=== PATIENT | male | born 1945 | race Caucasian/White ===

== ENCOUNTER 2020-08-21 12:21 | Outpatient (CLI) | payer MEDICARE, SELFPAY ==
--- NOTE | ~2020-08-21 | XR_ITS ---
EXAMINATION: XR hip RT min 2V DATE: 08/21/2020 12:49 INDICATION: Right hip pain. TECHNIQUE: 2 views of right hip were obtained. COMPARISON: None. FINDINGS: Bone alignment is normal. No fracture. There is mild right hip osteoarthritis. A surgical c lip overlies the pelvis. IMPRESSION: 1. Mild right hip osteoarthritis. Reviewed, dictated and finalized at location A. [employer]
== END 2020-08-21 12:22 | disposition home or self-care (01) ==
DX: M16.11 Unilateral primary osteoarthritis, right hip (principal)
CPT/HCPCS: 73502

== ENCOUNTER 2022-07-25 15:41 | Emergency (ER) | payer MEDICARE, SELFPAY ==
--- NOTE | ~2022-07-25 | CT_ITS ---
EXAMINATION: CT cervical spine wo con DATE: 07/25/2022 16:41 INDICATION: trauma TECHNIQUE: Computed tomography (CT) of the cervical spine was performed without intravenous contrast. Automated exposure control and iterative reconstruction technique were employed. The dose-length pro duct was 406.72 mGy-cm. COMPARISON: 08/14/2018 FINDINGS: Vertebral Body Alignment: Intact. Trace multilevel degenerative listheses. Craniocervical and atlantoaxial alignment: Moderate degenerative change. Alignment intact. Osseous structures/fracture: No evidence of a lytic or blastic process in the visualized spine. No e vidence of acute fracture. Cervical soft tissues: The paraspinal soft tissues planes are maintained. Degenerative changes: Degenerative changes, without severe neural foraminal or central canal narrowin g. IMPRESSION: No acute fracture or traumatic malalignment in the cervical spine. Reviewed, dictated and finalized at location K.
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
--- NOTE | ~2022-07-25 | XR_ITS ---
EXAMINATION: XR knee RT min 4V DATE: 07/25/2022 16:28 INDICATION: Scrapes to the anterior right knee post fall TECHNIQUE: Anteroposterior, 2 oblique and crosstable lateral views of the right knee were obtained COMPARISON: None. FINDINGS: Right total knee arthroplasty with patellar resurfacing which is in near-anatomic alignment. No perip rosthetic lucency to suggest loosening or infection. Small elongated ossicle projecting along the sup eromedial margin of the patella which could represent either a minimally displaced age-indeterminate fracture versus degenerative or enthesopathic ossicle. No other lesions suspicious for fracture. Smal l right knee joint effusion without layering lipohemarthrosis. Mild prepatellar soft tissue swelling. No radiopaque foreign bodies. IMPRESSION: 1. Right total knee arthroplasty. 2. Small ossicle along the superomedial margin of the right patella which could represent either a mi nimally displaced age-indeterminate fracture versus chronic loose body or enthesopathic ossicle. Fadi elate for point tenderness along the superomedial margin of the patella. 3. Small right knee joint effusion. Reviewed, dictated and finalized at location B. IMPRESSION: 1. Right total knee arthroplasty. 2. Small ossicle along the superomedial margin of the right patella which could represent either a minimally displaced age-indeterminate fracture versus chron ic loose body or enthesopathic ossicle. Correlate for point tenderness along th e superomedial margin of the patella. 3. Small right knee joint effusion.
--- NOTE | ~2022-07-25 | XR_ITS ---
EXAMINATION: XR chest 1V portable DATE: 07/25/2022 16:29 INDICATION: Fall TECHNIQUE: frontal view of the chest was obtained. COMPARISON: Chest radiograph dated 03/26/18 FINDINGS: The lungs remain clear with no focal airspace opacities, pulmonary edema, pleural effusion or pneumot horax. The cardiomediastinal silhouette is normal. Postoperative changes in the epigastric region wit h multiple surgical clips. Postoperative change of prior bilateral distal clavicle resections. IMPRESSION: 1. No acute cardiopulmonary disease. Reviewed, dictated and finalized at location B.
--- NOTE | ~2022-07-25 | XR_ITS ---
EXAM: XR shoulder LT min 2V DATE: 07/25/2022 16:28 HISTORY: fall, pain throughout shoulder . COMPARISON: None available. FINDINGS: Normal mineralization. No fracture or dislocation. No lytic or blastic lesion. Degenerativ e change at the AC joint and glenohumeral joint. No erosion or periosteal change. Soft tissues within normal limits. IMPRESSION: No acute osseous finding in the left shoulder. Reviewed, dictated and finalized at location K.
[2022-07-25 15:46] VITALS: BP 155/76; PULSE 83; RESP 16; TEMP 36.6; O2SAT 98
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
[2022-07-25] MEDS: fentaNYL CITRATE INJ (*CRX) 100 MCG/2 ML VIAL IV PUSH (17:01)
--- NOTE | 2022-07-25 17:06 | PC.NURSE ---
ALS Transfer to [facility] accpted ALS Transfer ETA 15min Trip # [id number]
[2022-07-25 17:11] VITALS: BP 172/84; PULSE 85; RESP 16; O2SAT 100
[2022-07-25 17:26] VITALS: BP 169/80; PULSE 85; RESP 18; O2SAT 100
== END 2022-07-25 17:39 | disposition short-term general hospital (02) ==
PROVIDERS: Emergency Provider Emergency Medicine
DX: S06.30AA Unspecified focal traumatic brain injury with loss of consciousness status unknown, initial encounter (principal); S52.022B Displaced fracture of olecranon process without intraarticular extension of left ulna, initial encounter for open fracture type I or II; S00.81XA Abrasion of other part of head, initial encounter; S80.211A Abrasion, right knee, initial encounter; M18.9 Osteoarthritis of first carpometacarpal joint, unspecified; Z96.651 Presence of right artificial knee joint; V18.4XXA Pedal cycle driver injured in noncollision transport accident in traffic accident, initial encounter; Y93.55 Activity, bike riding
CPT/HCPCS: 70450; 71045; 72125; 73030; 73080; 73100; 73564; 96365; 96375; 99285; A4565; J0690; J3010

== ENCOUNTER 2024-06-04 08:46 | Emergency (ER) | payer MEDICARE, SELFPAY ==
[2024-06-04] VITALS (12 sets, daily range): BP systolic 122–170; BP diastolic 62–78; PULSE 56–89; RESP 16–22; TEMP 36.4–36.6; O2SAT 97–100
--- NOTE | ~2024-06-04 | XR_ITS ---
EXAMINATION: XR chest 2V DATE: 06/04/2024 09:36 INDICATION: Syncope. TECHNIQUE: Frontal and lateral views of the chest were obtained on 3 radiographs. COMPARISON: Chest single view 07/25/2022 FINDINGS: There is no pneumonia, pleural effusion, or pneumothorax. The heart size is normal. There a re surgical clips in the abdomen. IMPRESSION: 1. No acute cardiopulmonary disease. Reviewed, dictated and finalized at location A.
--- NOTE | ~2024-06-04 | CT_ITS ---
EXAMINATION: CT cervical spine wo con DATE: 06/04/2024 11:32 INDICATION: Head injury. TECHNIQUE: Computed tomography (CT) of the cervical spine was performed without intravenous contrast. Automated exposure control and iterative reconstruction technique were employed. The dose-length pro duct was 375.17 mGy-cm. COMPARISON: CT cervical spine 07/25/2022 FINDINGS: There is 5 degrees dextrocurvature of cervical spine. There is 2 mm retrolisthesis of C5 an d C6. Vertebral body heights are normal. There is mildly decreased disc height at C3-C4, severely dec reased disc height at C5-C6, and mildly decreased disc height at C6-C7. The following disc levels are specifically discussed: C2-C3: There is mild bilateral uncovertebral joint osteoarthritis. There is severe right and mild lef t facet joint osteoarthritis. There is mild right neural foraminal stenosis. There is mild central ca nal stenosis. C3-C4: There is severe bilateral uncovertebral joint osteoarthritis. There is severe bilateral facet joint osteoarthritis. There is mild bilateral neural foraminal stenosis. There is mild central canal stenosis. C4-C5: There is mild bilateral uncovertebral joint osteoarthritis. There is severe right and mild lef t facet joint osteoarthritis. There is mild right neural foraminal stenosis. There is mild central ca nal stenosis. C5-C6: There is severe bilateral uncovertebral joint osteoarthritis. There is severe right and modera te left facet joint osteoarthritis. There is mild bilateral neural foraminal stenosis. There is mild central canal stenosis. C6-C7: There is mild bilateral uncovertebral joint osteoarthritis. There is severe bilateral facet gisell int osteoarthritis. There is mild bilateral neural foraminal stenosis. There is mild central canal st enosis. C7-T1: There is no uncovertebral joint osteoarthritis. There is severe bilateral facet joint osteoart hritis. There is mild bilateral neural foraminal stenosis. There is mild central canal stenosis. IMPRESSION: 1. No fracture. 2. Severe cervical spondylosis. Reviewed, dictated and finalized at location A.
--- NOTE | ~2024-06-04 | CT_ITS ---
EXAMINATION: CT brain wo con DATE: 06/04/2024 17:24 INDICATION: Reassess involving intracranial hemorrhage. TECHNIQUE: Computed tomography (CT) of the head was performed without intravenous contrast. Sagittal and coronal reconstructions were performed. Automated exposure control and iterative reconstruction t echnique were employed. The dose-length product was 605.33 mGy-cm. COMPARISON: head CT dated 06/04/2024 at 11:23 AM FINDINGS: Unchanged small old lacunar infarct at the right lentiform nucleus. Also unchanged is a small focus o f acute subarachnoid hemorrhage at the right side of the interhemispheric fissure along the medial an terior right frontal lobe. No acute infarction. There is mild scattered white matter hypoattenuation consistent with chronic small vessel ischemic disease. Symmetric prominence of the sulci and subarac hnoid spaces overlying the convexities consistent with mild age-appropriate diffuse cerebral volume l oss. Ventricles are normal and symmetric. No mass/mass effect. Changes of bilateral intraocular lens replacement. The orbits and mastoid air cells are normal. Mild mucosal thickening the bilateral ethm oid sinuses. Small amount of mucous at the dependent right sphenoid sinus. IMPRESSION: 1. No change in a small focus of acute subarachnoid hemorrhage along the right-side of the interhemis pheric fissure. 2. Old lacunar infarct at the right lentiform nucleus and mild scattered white matter hypoattenuation consistent with chronic small vessel ischemic disease. Reviewed, dictated and finalized at location A. IMPRESSION: 1. No change in a small focus of acute subarachnoid hemorrhage along the right- side of the interhemispheric fissure. 2. Old lacunar infarct at the right lentiform nucleus and mild scattered white matter hypoattenuation consistent with chronic small vessel ischemic disease.
--- NOTE | ~2024-06-04 | CT_ITS ---
EXAMINATION: CT brain wo con DATE: 06/04/2024 11:32 INDICATION: Head injury. Syncope. TECHNIQUE: Computed tomography (CT) of the head was performed without intravenous contrast. The mA wa s adjusted according to patient size. Iterative reconstruction technique was employed. The dose-lengt h product was 605.33 mGy-cm. COMPARISON: Head CT 07/25/2022 FINDINGS: There is an old infarct in the right basal ganglia. There is a small focus of acute subarac hnoid hemorrhage in anterior interhemispheric fissure. There are scattered areas of low attenuation i n the cerebral white matter, which is within normal limits for the patient's age. The ventricles are normal in size. There is mild mucosal thickening in the paranasal sinuses. There are likely changes o f ocular lens replacement surgeries. The mastoid air cells are normal. IMPRESSION: 1. Small focus of acute subarachnoid hemorrhage in anterior interhemispheric fissure. 2. Old lacunar infarct in the right basal ganglia. Reviewed, dictated and finalized at location A. IMPRESSION: 1. Small focus of acute subarachnoid hemorrhage in anterior interhemispheric fi ssure. 2. Old lacunar infarct in the right basal ganglia.
--- NOTE | 2024-06-04 08:53 | ECG_ITS ---
Test Date: 2024-06-04 08:59:47 Measurements Intervals [place] Rate: 60 P: 32 WA: 189 QRS: -39 QRSD: 102 T: 5 QT: 392 QTc: 394 Interpretive Statements SINUS RHYTHM LEFT AXIS DEVIATION [QRS AXIS < -30] LOW QRS VOLTAGE IN PRECORDIAL LEADS [QRS DEFLECTION < 1.0 mV IN CHEST LEADS] VOLTAGE CRITERIA FOR LVH [MEETS CRITERIA IN ONE OF: R(aVL), S(V1), R(V5), R(V5/V6)+S(V1)] POOR R WAVE PROGRESSION No previous ECG available for comparison Electronically Signed On 06-04-2024 10:25:08 CDT by Jessica Hardy M.D.
[2024-06-04 09:10] LABS: Basophils Absolute Auto 0.1 K/mm3 (0.0-0.1); Basophils Percent Auto 0.9 % (0.2-1.2); Eosinophils Absolute Auto 0.2 K/mm3 (0-0.3); Eosinophils Percent Auto 3.7 % (0-4.4); Hematocrit 40.7 % (42.0-52.0); Hemoglobin 13.6 g/dL (14.0-18.0); Immature Granulocyte Absolute 0.01 K/mm3 (0.00-0.031); Immature Granulocyte Percent A 0.2 % (0-0.5); Lymphocytes Absolute Auto 1.79 K/mm3 (0.9-3.2); Lymphocytes Percent Auto 30.5 % (18.3-44.2); Mean Corpuscular HGB Conc 33.4 g/dl (32-36); Mean Corpuscular Hemoglobin 32.3 pg (26-34); Mean Corpuscular Volume 96.7 fl (80-100); Mean Platelet Volume 10.1 fl (7.4-10.4); Monocytes Absolute Auto 0.6 K/mm3 (0.1-0.6); Monocytes Percent Auto 9.5 % (2.6-8.5); Neutrophils Absolute Auto 3.2 K/mm3 (1.3-6.7); Neutrophils Percent Auto 55.2 % (45.5-73.1); Platelet Count Result 203 k/mm3 (150-375); Red Blood Count 4.21 M/mm3 (4.6-6.20); Red Cell Distribution Width 13.2 % (11.5-14.5); White Blood Count 5.9 K/mm3 (4.5-10.0)
[2024-06-04 09:20] LABS: Alanine Aminotransferase 26 U/L (6-50); Albumin Level 4.2 g/dL (3.5-5.1); Alkaline Phosphatase 56 U/L (38-126); Anion Gap 9 mmol/L (4-12); Aspartate Amino Transferase 27 U/L (17-59); Bilirubin,Total 0.8 mg/dL (0.2-1.3); Blood Urea Nitrogen 30 mg/dL (9-20); Calcium 9.2 mg/dL (8.4-10.2); Carbon Dioxide 28 mmol/L (22-30); Chloride 100 mmol/L (98-107); Estimated CRCL calculation 46 ml/min; Estimated Glomerular Filt Rate 49; Glucose 121 mg/dL (65-110); Potassium 4.7 mmol/L (3.4-5.0); Sodium 137 mmol/L (137-145)
--- NOTE | 2024-06-04 11:15 | ED.SYNCOPE ---
HPI - Syncope General Chief Complaint: Syncope Stated Complaint: syncopal Time Seen by Provider: 06/04/24 11:06 History of Present Illness HPI narrative: 79-year-old male presents to the emergency room for evaluation of a syncopal episode. Patient states he he was choking on a piece of, where he started gasping and has syncopal episode. Patient's states she found him unresponsive on the kitchen floor, where he remained unconscious for 3 minutes. EMS was called to the scene. On the scene, patient was observed standing and pushing a chair, reportedly requesting to go to the restroom. Presently, patient is alert and oriented x3. Endorses head and neck pain. Denies any chest pain, shortness of breath or difficulty breathing. Denies vision or hearing change Related Data Home Medications Medication Instructions Recorded Confirmed albuterol sulfate 90 mcg/actuation inhalation 07/25/22 07/25/22 aerosol inhaler atorvastatin 40 mg tablet mg 07/25/22 tamsulosin 0.4 mg capsule mg PO 07/25/22 Allergies Allergy/AdvReac Type Severity Reaction Status Date / Time iodine Allergy Mild Unknown Verified 06/04/24 09:01 latex Allergy Unknown Rash Verified 06/04/24 09:01 Review of Systems Review of Systems: ROS unremarkable except for noted in HPI Course Course Emergency Course: 1145: Discussed course with neurosurgeon, Dr. Price. He is willing to consult with the patient if admitted. 1210: Consult up with For our. He is recommending patient be transferred to a trauma facility due to limited neurosurgery a capabilities. Vital Signs Vital signs: Vital Signs Temperature 36.4 C 06/04/24 08:43 Pulse Rate 56 L 06/04/24 08:43 Respiratory Rate 16 06/04/24 08:43 Blood Pressure 152/73 H 06/04/24 08:43 Pulse Oximetry 98 06/04/24 08:43 Oxygen Delivery Room Air 06/04/24 08:43 Temperature 36.4 C 06/04/24 08:43 Pulse Rate 65 06/04/24 17:27 Respiratory Rate 17 06/04/24 17:27 Blood Pressure 170/75 H 06/04/24 17:27 Pulse Oximetry 100 06/04/24 17:27 Oxygen Delivery Room Air 06/04/24 08:43 MDM - Syncope MDM Narrative Medical decision making narrative: 79-year-old male presents emergency room for evaluation of head injury status post syncopal fall. Initial CT showed a small subarachnoid hemorrhage. Discussed case with Neurosurgery. Initially neurosurgeon: Patient admitted for overnight observation and repeat head CT in the morning. Hospitalist refused patient. Attempt to transfer patient to outside hospital. Repeat CT scan showed no worsening of the ICH. Reviewed repeat images with neurosurgeon. Dr. Olmstead agreeable to d/c patient home. Lab Data 06/04/24 08:59 06/04/24 08:59 Labs: Lab Results 06/04/24 Range/Units 08:59 WBC 5.9 (4.5-10.0) K/mm3 RBC 4.21 L (4.6-6.20) M/mm3 Hgb 13.6 L (14.0-18.0) g/dL Hct 40.7 L (42.0-52.0) % MCV 96.7 (80-100) fl MCH 32.3 (26-34) pg MCHC 33.4 (32-36) g/dl RDW 13.2 (11.5-14.5) % Plt Count 203 (150-375) k/mm3 MPV 10.1 (7.4-10.4) fl Immature Gran % (Auto) 0.2 (0-0.5) % Neut % (Auto) 55.2 (45.5-73.1) % Lymph % (Auto) 30.5 (18.3-44.2) % Morrison % (Auto) 9.5 H (2.6-8.5) % Eos % (Auto) 3.7 (0-4.4) % Baso % (Auto) 0.9 (0.2-1.2) % Lymph # (Auto) 1.79 (0.9-3.2) K/mm3 Morrison # (Auto) 0.6 (0.1-0.6) K/mm3 Eos # (Auto) 0.2 (0-0.3) K/mm3 Baso # (Auto) 0.1 (0.0-0.1) K/mm3 Abs Immat Gran (auto) 0.01 (0.00-0.031) K/mm3 Absolute Neuts (auto) 3.2 (1.3-6.7) K/mm3 Absolute Nucleated RBC 0.000 (0.0-0.012) K/mm3 Nucleated RBC % 0.0 (0.0-0.2) % PT 14.5 (11.1-14.7) Seconds INR 1.1 APTT 28.1 (22.3-36.8) Seconds Sodium 137 (137-145) mmol/L Potassium 4.7 (3.4-5.0) mmol/L Chloride 100 (98-107) mmol/L Carbon Dioxide 28 (22-30) mmol/L Anion Gap 9 (4-12) mmol/L BUN 30 H (9-20) mg/dL Creatinine 1.40 H (0.7-1.3) mg/dL Estim Cr
[2024-06-04 11:47] LABS: Troponin I < 0.012 ng/mL (0.000-0.034)
[2024-06-04 12:14] LABS: INR 1.1; Prothrombin Time 14.5 Seconds (11.1-14.7)
[2024-06-04 12:15] LABS: Partial Thromboplastin Time 28.1 Seconds (22.3-36.8)
== END 2024-06-04 18:32 | disposition home or self-care (01) ==
PROVIDERS: Student in an Organized Health Care Education/Training Program; Emergency Provider Nurse Practitioner Family
DX: S06.6X0A Traumatic subarachnoid hemorrhage without loss of consciousness, initial encounter (principal); W18.39XA Other fall on same level, initial encounter
CPT/HCPCS: 36415; 70450; 71046; 72125; 80053; 84484; 85025; 85610; 85730; 93005; 99284